=== PATIENT | female | born 1975 | race Caucasian/White ===

== ENCOUNTER → 2016-11-26 | Outpatient (CLI) | payer BC, OTHER ==
--- NOTE | 2016-11-26 13:28 | MA ---
Digital Diagnostic Left And Screening Right Mammogram Clinical Indications: Palpable lump in the left breast. Due for screening. Technique: True lateral and MLO and CC spot compression views of the left breast were performed. Bila teral cephalocaudal and mediolateral oblique projections were obtained. This examination [facility]. Comparison: Mammograms from December 29, 2012 and July 09, 2012. Breast density: Type D: The breast tissue is extremely dense, which lowers the sensitivity of mammogr aphy. Findings: CAD was reviewed. There is no visible correlate for the patient's palpable lump, although d ense breast parenchyma in the region limits sensitivity. The lump is in a similar area to that previo usly evaluated in 2013. No suspicious calcifications, masses, or areas of architectural distortion a re identified. Dense breast parenchyma reduces sensitivity for noncalcified masses. Impression: No visible correlate for the palpable lump, with limited assessment due to dense breast p arenchyma in the region. BI-RADS 0: Needs additional imaging evaluation Recommendation: Ultrasound, which will be performed later the same day. Please see separate dictatio n for findings and recommendations. [facility] will send a result letter to the patient. Negative mammography should not preclude additional workup of a clinically suspicious finding. The patient's information is entered into a reminder system with a target due date for her next mammo gram.
--- NOTE | 2016-11-26 14:17 | US ---
Diagnostic Left Breast Ultrasound History: Palpable lump in the 6 o'clock left breast. Comparison: Diagnostic mammogram same day, breast ultrasound December 29, 2012. Technique: Limited grayscale and Doppler ultrasound in the region of mammographic abnormality was per formed. Real time sonography was performed by the radiologist. Findings: Directed physical exam is performed, showing a small lump in the area of interest. Ultrasou nd at 6 o'clock 4 cm from the nipple shows a subtle hypoechoic structure measuring approximately 1.1 x 0.5 x 0.7 cm, similar in appearance to an ill-defined hypoechoic region in the comparison from 2012 , suggesting a cluster of microcysts. This is slightly more discrete on the current study. Impression: Probable cluster of microcysts corresponding to the palpable lump. BI-RADS 3: Probably be nign findings. Recommendation: Six-month follow-up ultrasound is recommended to document stability of a probable clu ster of microcysts. The option of surgical consultation was discussed with patient. Clinical follow u p is recommended for the palpable lump. If the lump enlarges, recommend repeat ultrasound or surgical consultation. [facility] will send a result letter to the patient.
== END ==
LOC: CIMAGING 12:47
PROVIDERS: ATTEND Family Medicine
DX: Z12.39 Encounter for other screening for malignant neoplasm of breast (principal); N63 Unspecified lump in breast
CPT/HCPCS: 76641-PO

== ENCOUNTER → 2017-06-24 | Outpatient (CLI) | payer BC | LOC: CIMAGING 13:19 | PROVIDERS: ATTEND Family Medicine | DX: R92.8 Other abnormal and inconclusive findings on diagnostic imaging of breast (principal) | CPT/HCPCS: 76641-PO ==

== ENCOUNTER → 2017-11-11 | Outpatient (CLI) | payer BC | LOC: FIMAGING 14:40 | PROVIDERS: ATTEND Family Medicine | DX: Z12.31 Encounter for screening mammogram for malignant neoplasm of breast (principal); Z80.3 Family history of malignant neoplasm of breast ==

== ENCOUNTER → 2017-11-27 | Outpatient (CLI) | payer BC | LOC: BRMIMAGING 10:05 | PROVIDERS: ATTEND Family Medicine | DX: R92.8 Other abnormal and inconclusive findings on diagnostic imaging of breast (principal) | CPT/HCPCS: 76641-PO ==

== ENCOUNTER → 2019-01-02 | Outpatient (CLI) | payer OTHER | LOC: FIMAGING 14:36 | PROVIDERS: ATTEND Family Medicine | DX: Z12.31 Encounter for screening mammogram for malignant neoplasm of breast (principal) ==